=== PATIENT | female | born 1985 | race Caucasian/White ===

== ENCOUNTER 2018-05-03 06:02 | Emergency (ER) | payer SELFPAY ==
[2018-05-03] MEDS ORDERED: KETOROLAC TROMETHAMINE 60 MG/2 ML SDV IM ONE (06:30)
--- NOTE | 2018-05-03 06:58 | ER Document Report ---
ED General - General Chief Complaint: Abdominal Pain Stated Complaint: ABDOMINAL PAIN Time Seen by Provider: 05/03/18 06:24 - HPI Notes: 32-year-old female presents to the emergency department with lower abdominal cramping radiating to her back. The patient stated she has the same pain every month. She states usually tries ibuprofen a hot pad. She states this comes with her. She denies possibly being denies falls or trauma denies vaginal discharge. Denies burning or pain with urination. Discussed the pain as severe cramping in her lower abdomen and it radiates to her back. Again she has this pain every month this month she has tried all her usual methods and still is having pain she is compared to the ER for pain relief and evaluation. - Related Data Allergies/Adverse Reactions: No Known Allergies Allergy (Verified 05/03/18 07:53) Past Medical History - Social History Smoking Status: Never Smoker Family History: None Patient has suicidal ideation: No Patient has homicidal ideation: No Renal/ Medical History: Denies: Hx Peritoneal Dialysis Review of Systems - Review of Systems Constitutional: denies: Chills, Fever Gastrointestinal: Abdominal pain. denies: Diarrhea, Nausea, Vomiting Genitourinary: denies: Dysuria, Hematuria Female Genitourinary: Heavy/abnormal periods, Irregular period, Vaginal bleeding. denies: , Vaginal odor -: Yes All other systems reviewed and negative Physical Exam - Vital signs Vitals: Temp Pulse Resp BP Pulse Ox 98.3 F 70 18 116/54 L 100 05/03/18 06:06 05/03/18 06:06 05/03/18 06:06 05/03/18 06:06 05/03/18 06:06 - Notes Notes: GENERAL_APPEARANCE: well_nourished, alert, cooperative VITALS: reviewed, see vital signs table. HEAD: no_swelling\tenderness on the head. EYES: PERRL, EOMI, conjunctiva_clear. NOSE: no_nasal_discharge. MOUTH: (-)decreased moisture. THROAT: no_tonsilar_inflammation, no_airway_obstruction. no_lymphadenopathy NECK: supple, no_neck_tenderness, (-)thyromegaly. BACK: no_back_tenderness. Negative CVA tenderness CHEST_WALL: no_chest_tenderness. LUNGS: no_wheezing, no_rales, no_rhonchi, (-)accessory muscle use, good air exchange bilateral. HEART: normal_rate, normal_rhythm, normal_S1, normal_S2, (-)S3, (-)S4, no_ murmur, no_rub. ABDOMEN: soft, suprapubic_abd_tenderness, (-)guarding, (-)rebound, no_ organomegaly, no_abd_masses. EXTREMITIES: no_swelling\tenderness in the extremities, no_edema. SKIN: warm, dry, good_color, no_rash. MENTAL_STATUS: speech_clear, oriented_X_3, normal_affect, responds_ appropriately to questions. Course - Re-evaluation Re-evalutation: 05/03/18 06:57 32-year-old female presents to emerge from with lower abdominal cramping similar to prior painful periods. Patient usually has very painful crampy periods every month. She has had this for quite a while unfortunately she has tried her usual medicines and still has discomfort. She came in for evaluation. She is requesting something for pain. 05/03/18 09:52 Patient is not . Urine shows no signs of infection just blood. She did feel better after Toradol injection will be discharged home with a prescription for NSAIDs. - Vital Signs Vital signs: Temp Pulse Resp BP Pulse Ox 98.3 F 70 18 116/54 L 100 05/03/18 06:06 05/03/18 06:06 05/03/18 06:06 05/03/18 06:06 05/03/18 06:06 - Laboratory Laboratory results interpreted by me: 05/03/18 06:56 Urine Blood MODERATE H Urine Urobilinogen 4.0 H Ur Leukocyte Esterase TRACE H Discharge - Discharge Clinical Impression: Menstrual cramps Condition: Good Disposition: HOME, SELF-CARE Instructions: Abdominal Pain ([facility]) Prescriptions: Ketorolac Tromethamine 10 mg PO QID PRN #10 tablet PRN Reason: Pain
[2018-05-03 09:23] LABS: AMORPHOUS SEDIMENT,URINE TRACE /HPF; APPEARANCE,URINE CLOUDY; BILIRUBIN,URINE NEGATIVE (NEGATIVE); COLOR,URINE YELLOW; GLUCOSE, URINE NEGATIVE (NEGATIVE); KETONES,URINE NEGATIVE (NEGATIVE); LEUKOCYTE ESTERASE,URINE TRACE (NEGATIVE); NITRITE,URINE NEGATIVE (NEGATIVE); PROTEIN,URINE NEGATIVE (NEGATIVE); URINE SPECIFIC GRAVITY 1.026
[2018-05-03 10:29] VITALS: BP 110/44
== END 2018-05-03 10:20 | disposition home or self-care (01) ==
LOC: ER 06:02
DX: N94.6 Dysmenorrhea, unspecified (principal)
CPT/HCPCS: 99284; 96372; 82570; 81025; 81001; J1885

== ENCOUNTER → 2018-05-04 | Outpatient (CLI) | payer SELFPAY ==
--- NOTE | 2018-05-04 17:56 | RADIOLOGY REPORT (SQ) ---
EXAM DESCRIPTION: U/S NON-OB PELVIS W/O DOP COMPLETED DATE/TIME: 05/04/2018 5:24 pm REASON FOR STUDY: N94.6 DYSMENORRHEA, UNSPECIFIED N94.6 DYSMENORRHEA, UNSPECIFIED LMP 05/02/2018 COMPARISON: None. TECHNIQUE: Dynamic and static grayscale images acquired of the pelvis via transabdominal approach an d recorded on PACS. Additional selected color Doppler and spectral images recorded. LIMITATIONS: Exam limited because of bowel gas. Incomplete filling of the bladder. FINDINGS: UTERUS: Contour normal. No mass. ENDOMETRIAL STRIPE: Not seen. CERVIX: Not well seen. RIGHT OVARY AND DOPPLER: Not seen. LEFT OVARY AND DOPPLER: Not seen. FREE FLUID: None noted. OTHER: No other significant finding. MEASUREMENTS: UTERUS: 7.2 x 4.2 x 5.2 cm. ENDOMETRIAL STRIPE: Not seen. RIGHT OVARY: Not seen. LEFT OVARY: Not seen. IMPRESSION: The uterus is grossly normal. The study is quite limited. TECHNICAL DOCUMENTATION: JOB ID: [id number] [employer]- All Rights Reserved Rev Reading location - IP/workstation name: [email or web address]
== END ==
LOC: RAD 16:27
DX: N94.6 Dysmenorrhea, unspecified (principal)
CPT/HCPCS: 76856

== ENCOUNTER 2018-08-27 11:02 | Emergency (ER) | payer SELFPAY ==
[2018-08-27 11:12] VITALS: BP 111/53
[2018-08-27] MEDS ORDERED: METHYLPREDNISOLONE INJ 125 MG/2 ML SDV IV ONE (11:38)
[2018-08-27] MEDS ORDERED: FAMOTIDINE INJ/PF 20 MG/2 ML SDV IV ONE (11:38)
[2018-08-27] MEDS ORDERED: DIPHENHYDRAMINE HCL 50 MG/ML VIAL IV ONE (11:38)
--- NOTE | 2018-08-27 11:38 | ER Document Report ---
ED Medical Screen (RME) - General TRAVEL OUTSIDE OF THE [place] IN LAST 30 DAYS: No - General Chief Complaint: Hives Stated Complaint: EYE PAIN Time Seen by Provider: 08/27/18 11:33 Notes: 32-year-old female who presents to the emergency department today with complaints of right eye itching, right eye tearing, and a burning sensation in the right eye which all began prior to arrival today while the patient was "riding down the road". Patient states it feels as if there is "a piece of hair in her eye". Patient states her eye lids itch however the eyeball is not itching. Patient denies any blurry vision, eye discharge, recent insect bites, known allergies, or usage of any new products. I have greeted and performed a rapid initial assessment of this patient. A comprehensive ED assessment and evaluation of the patient, analysis of test results, and completion of the medical decision making process will be conducted by additional ED providers. Review of systems: Constitutional: No symptoms reported EENT: Right eye itching, tearing, burning Denies: blurry vision, eye discharge Cardiovascular: No symptoms reported Respiratory: No symptoms reported Gastrointestinal: No symptoms reported Genitourinary: No symptoms reported Musculoskeletal: No symptoms reported Skin: No symptoms reported Hematologic/Lymphatic: No symptoms reported Neurological/Psychological: No symptoms reported Yes All other systems reviewed and negative PHYSICAL EXAM GENERAL: Alert, interacts well. No acute distress. HEAD: Normocephalic, atraumatic. EYES: Pupils equal, round, and reactive to light. Extraocular movements intact. Right upper and lower eyelids are erythematous. Raised urticarial patches on upper and lower eyelids on the right. Urticarial patches extend from the right eyebrow down to the right maxilla. Right scleral injection. ENT: Oral mucosa moist, tongue midline. NECK: Full range of motion. Supple. Trachea midline. LUNGS: No respiratory distress. EXTREMITIES: Moves all 4 extremities spontaneously. NEUROLOGICAL: Alert and oriented x3. Normal speech. PSYCH: Normal affect, normal mood. SKIN: Warm, dry, normal turgor. Slight erythema over the right clavicle. (ARCHANA BLEVINS) - Related Data Allergies/Adverse Reactions: No Known Allergies Allergy (Verified 05/03/18 07:53) Past Medical History Renal/ Medical History: Denies: Hx Peritoneal Dialysis - Vital signs Vitals: Temp Pulse Resp BP Pulse Ox 98.3 F 79 14 111/53 L 100 08/27/18 11:11 08/27/18 11:11 08/27/18 11:11 08/27/18 11:11 08/27/18 11:11 - Vital Signs Vital signs: Temp Pulse Resp BP Pulse Ox 98.3 F 79 14 111/53 L 100 08/27/18 11:11 08/27/18 11:11 08/27/18 11:11 08/27/18 11:11 08/27/18 11:11 Doctor's Discharge - Discharge Referrals: [facility] [Primary Care Provider] - Follow up as needed Scribe Documentation - Scribe Written by Ever:: Ever Birch, 08/27/2018 1150 acting as scribe for :: Payton
[2018-08-27] MEDS ORDERED: TETRACAINE HCL 0.5% OPH SOLN 4 ML OS ONE (11:58)
--- NOTE | 2018-08-27 12:25 | ER Document Report ---
HPI - HPI Time Seen by Provider: 08/27/18 11:33 Pain Level: 3 Notes: Patient is a 32-year-old female with no significant past medical history who presents to the ED complaining of right orbital rash and itching that occurred just prior to arrival. Patient states that she when she was driving she is not sure if the material from the leave because he had an allergy in that area or if she had a hair in her eye. Patient states that she has not had any vision changes. She does not have any associated sharp pain. Patient states that she does have watery eyes and occasional burning around her eye. No recent illness otherwise. She is eating and drinking without difficulty. She does not wear contact lenses. Denies drug allergies. Patient states that her symptoms have since improved from arrival. Patient states that the rash has significantly tied down since its initial onset. Denies any headache, fever, head injury, neck pain, changes in vision/speech/mentation/hearing, URI, sore throat, chest pain, palpitations, syncope, cough, shortness of breath, wheeze, dyspnea, abdominal pain, nausea/vomiting/diarrhea, urinary retention, dysuria, hematuria. - ROS Systems Reviewed and Negative: Yes All other systems reviewed and negative - DERM Skin Color: Normal Past Medical History - Social History Smoking Status: Never Smoker Family History: None Patient has suicidal ideation: No Patient has homicidal ideation: No Renal/ Medical History: Denies: Hx Peritoneal Dialysis Vertical Provider Document - CONSTITUTIONAL Agree With Documented VS: Yes Notes: PHYSICAL EXAMINATION: GENERAL: Well-appearing, well-nourished and in no acute distress. A&Ox4 HEAD: Atraumatic, normocephalic. EYES: Pupils equal round and reactive to light, extraocular movements intact, sclera anicteric, conjunctiva rt with minimal to no injection w/o discharge or matting. Non-tender to palp of the globe and eye itself. + very mild, faint, hive type rash around the eye, but not obviously noticeable at this time. Visual acuity 20/20 b/l and in each eye (performed by myself at bedside with my own eye chart). No obvious hordeolum noted. Wood's lamp/flourescein: No abrasion, laceration, ulceration, or kurtis sign noted. No obvious foreign body appreciated. ENT: EAC clear b/l. TM's intact b/l without erythema, fluid, or perforation. Nares patent and without discharge. oropharynx clear without exudates. No tonsilar hypertrophy or erythema. Moist mucous membranes. No sinus tenderness. Uvula midline. No palatine shift. No airway compromise. No drooling or hoarseness. No angioedema. NECK: Normal range of motion, supple without lymphadenopathy. No rigidity/ meningismus. LUNGS: Breath sounds clear to auscultation bilaterally and equal. No wheezes rales or rhonchi. HEART: Regular rate and rhythm without murmurs, rubs, gallops. Musculoskeletal: Ext b/l: FROM to passive/active. Strength 5+/5. Extremities: No cyanosis, clubbing, or edema b/l. Peripheral pulses 2+. Capillary refill less than 3 seconds. NEUROLOGICAL: Cranial nerves grossly intact. Normal speech, normal gait. Normal sensory, motor exams PSYCH: Normal mood, normal affect. SKIN: Warm, Dry, normal turgor, no rashes or lesions noted. - INFECTION CONTROL TRAVEL OUTSIDE OF THE [place] IN LAST 30 DAYS: No Course - Re-evaluation Re-evalutation: 08/27/18 12:25 Patient is an afebrile, well-hydrated 32-year-old female who presents to the ED with nonspecific skin rash around her right orbit that does appear to be hives, allergen. Vitals are acceptable without significant tachycardia, tachypnea, or hypoxia. PE is otherwise unremarkable. Patient is nontoxic-appearing and is tolerating p.o. without difficulty. Symptoms were of sudden onset and with watery discharge and irritation, which has since improved. Patient did receive Benadryl, Pepcid, and Solu-Medrol. Patient did have significant improvement in the rash as it was barely noticeable during my examination. She has not had any visual acuity changes. She does not have any sharp eye pain, fever, headache. Low suspicion for any retained corneal or lid foreign body, deep space infection including orbital cellulitis/abscess, acute glaucoma, penetrating globe injury, retinal detachment, meningitis, sepsis, fracture, compartment syndrome, airway compromise, angioedema. Conservative measures otherwise for symptoms with proper handwashing. Recheck with your PCM in 3-5 days. Schedule a f/u with Ophthalmology this week. Return to the ED with any worsening/concerning symptoms otherwise as reviewed in discharge. Patient is in agreement. - Vital Signs Vital signs: Temp Pulse Resp BP Pulse Ox 98.3 F 79 14 111/53 L 100 08/27/18 11:11 08/27/18 11:11 08/27/18 11:11 08/27/18 11:11 08/27/18 11:11 Procedures - Eye Procedure Right Time completed: 12:10 - No complications Eye Irrigated w/ Saline (ccs): 20 Alcaine Drops Administered: Yes - tetracaine Fluorescein applied: Right - see exam Discharge - Discharge Clinical Impression: Hives, Itchy, watery, and red eye Condition: Stable Disposition: HOME, SELF-CARE Instructions: Conjunctivitis, Allergic Additional Instructions: Keep eyes clean Avoid scratching/touching eyes Wash hands regularly Use eye drops as directed Maintain adequate fluid intake tylenol/ibuprofen as needed over the counter cold medication as needed for symptoms F/u: with your PCM in 3-5 days for a recheck Schedule appointment with ophthalmology for evaluation this week Return to the ED with any worsening symptoms and/or development of fever, headache, changes in vision, eye pain, worsening eye redness, redness around the eyes, purulent discharge, sore throat, facial swelling, neck pain/stiffness , chest pain, palpitations, syncope, shortness of breath, trouble breathing, abdominal pain, n/v/d, blood in stool/urine, dysuria, or other worsening symptoms that are concerning to you. Referrals: [facility] [NO LOCAL MD] - Follow up in 3-5 days JAISON QUESADA MD [ACTIVE STAFF] - Follow up in 3-5 days
== END 2018-08-27 12:40 | disposition home or self-care (01) ==
LOC: ER 11:02
DX: L50.9 Urticaria, unspecified (principal); R21 Rash and other nonspecific skin eruption
CPT/HCPCS: 99282; 96374; 96375; J1200; J2930; S0028

== ENCOUNTER → 2018-08-31 | Outpatient (CLI) | payer SELFPAY | LOC: OD 16:36 | PROVIDERS: ATTEND Student in an Organized Health Care Education/Training Program | DX: Z11.3 Encounter for screening for infections with a predominantly sexual mode of transmission (principal); Z11.4 Encounter for screening for human immunodeficiency virus [HIV] | CPT/HCPCS: 36415; 86592; 86701 ==

== ENCOUNTER 2018-10-20 00:42 | Emergency (ER) | payer SELFPAY ==
[2018-10-20 00:51] VITALS: BP 120/67
== END 2018-10-20 01:45 | disposition left against medical advice (07) ==
LOC: ER 00:42
DX: Z53.21 Procedure and treatment not carried out due to patient leaving prior to being seen by health care provider (principal)

== ENCOUNTER 2018-10-26 20:37 | Emergency (ER) | payer SELFPAY ==
[2018-10-26 20:43] VITALS: BP 129/64
== END 2018-10-26 22:30 | disposition left against medical advice (07) ==
LOC: ER 20:37
DX: Z53.21 Procedure and treatment not carried out due to patient leaving prior to being seen by health care provider (principal)

== ENCOUNTER 2018-10-30 13:57 | Emergency (ER) | payer SELFPAY ==
[2018-10-30] MEDS ORDERED: PREDNISONE 20 MG TABLET PO ONE (16:22)
[2018-10-30] MEDS ORDERED: ALBUTEROL SULFATE HFA (90 MCG/PUFF) 8 GM MDI (1 MDI/ER DISP) IH ONE (16:22)
[2018-10-30] MEDS ORDERED: IPRATROPIUM/ALBUTEROL 0.5-2.5 MG/3 ML AMPUL NEB ONE (16:24)
--- NOTE | 2018-10-30 16:28 | ER Document Report ---
ED Respiratory Problem - General Chief Complaint: Asthma Exacerbation Stated Complaint: COLD SYMPTOMS Time Seen by Provider: 10/30/18 16:21 Primary Care Provider: EVY CROWDER MD [ACTIVE STAFF] - Follow up as needed Mode of Arrival: Ambulatory Information source: Patient Notes: 33-year-old female presents to ED for history of asthma with cough cold congestion runny nose shortness of breath. She states that she has not had her inhaler in months and she cannot get over this wheezing and shortness of breath. She states she has a refill at the pharmacy but she does not have the money to buy the refill. Patient is alert and oriented respirations regular and unlabored speaking in full sentences and walks with a even steady gait. She does have a mild wheeze. TRAVEL OUTSIDE OF THE [place] IN LAST 30 DAYS: No - HPI Patient complains to provider of: Asthma, Cough, Short of breath Onset: Last week Duration: Continuous Initiating Event: URI Quality of pain: Achy, Other - Tight chest Severity: Moderate Pain Level: 3 Context: Hx asthma Short of Breath: Mild Chest pain/discomfort: Tightness Cough: Nonproductive Sputum amount: None Associated symptoms: Congestion, Cough, PND, Runny nose, Sinus pain/pressure, Short of breath, Wheezing. denies: Fever Similar symptoms previously: Yes Recently seen / treated by doctor: No - Related Data Allergies/Adverse Reactions: No Known Allergies Allergy (Verified 10/30/18 13:59) Past Medical History - General Information source: Patient - Social History Smoking Status: Former Smoker Chew tobacco use (# tins/day): No Frequency of alcohol use: Rare Drug Abuse: None Lives with: Family Family History: None Patient has suicidal ideation: No Patient has homicidal ideation: No Pulmonary Medical History: Reports: Hx Asthma Neurological Medical History: Reports: None Endocrine Medical History: Reports: None Renal/ Medical History: Reports: None Malignancy Medical History: Reports: None GI Medical History: Reports: None Musculoskeletal Medical History: Reports None Skin Medical History: Reports None Psychiatric Medical History: Reports: None Traumatic Medical History: Reports: None Infectious Medical History: Reports: None Surgical Hx: Negative Past Surgical History: Reports: None - Immunizations Immunizations up to date: Yes Review of Systems - Review of Systems Constitutional: Chills, Recent illness EENT: Nose congestion, Nose discharge, Sinus pressure, Sinus discharge Cardiovascular: No symptoms reported Respiratory: Cough, Short of breath, Wheezing Gastrointestinal: No symptoms reported Genitourinary: No symptoms reported Female Genitourinary: No symptoms reported Musculoskeletal: No symptoms reported Skin: No symptoms reported Hematologic/Lymphatic: No symptoms reported Neurological/Psychological: No symptoms reported -: Yes All other systems reviewed and negative Physical Exam - Vital signs Vitals: Temp Pulse Resp BP Pulse Ox 98.0 F 75 18 112/62 100 10/30/18 14:19 10/30/18 14:19 10/30/18 14:19 10/30/18 14:19 10/30/18 14:19 Interpretation: Normal - General General appearance: Appears well, Alert - HEENT Head: Normocephalic, Atraumatic Eyes: Normal Pupils: PERRL Ears: Normal External canal: Normal Tympanic membrane: Normal Sinus: Normal Nasal: Purulent discharge, Swelling Mouth/Lips: Normal Mucous membranes: Normal Pharynx: Post nasal drainage. No: Erythema, Exudate, Retropharyngeal abscess, Tonsillar hypertrophy Neck: Normal - Respiratory Respiratory status: No respiratory distress Chest status: Nontender Breath sounds: Nonproductive cough, Wheezing Chest palpation: Normal - Cardiovascular Rhythm: Regular Heart sounds: Normal auscultation Murmur: No - Abdominal Inspection: Normal Distension: No distension Bowel sounds: Normal Tenderness: Nontender Organomegaly: No organomegaly - Back Back: Normal, Nontender - Extremities General upper extremity: Normal inspection, Nontender, Normal color, Normal ROM, Normal temperature General lower extremity: Normal inspection, Nontender, Normal color, Normal ROM, Normal temperature, Normal weight bearing. No: Tigist's sign - Neurological Neuro grossly intact: Yes Cognition: Normal Orientation: AAOx4 Broughton Coma Scale Eye Opening: Spontaneous Edith Coma Scale Verbal: Oriented Edith Coma Scale Motor: Obeys Commands Edith Coma Scale Total: 15 Speech: Normal Motor strength normal: LUE, RUE, LLE, RLE Sensory: Normal - Psychological Associated symptoms: Normal affect, Normal mood - Skin Skin Temperature: Warm Skin Moisture: Dry Skin Color: Normal Course - Re-evaluation Re-evalutation: 10/31/18 02:20 Patient treated with steroids bronchodilators for her wheezing cough congestion and discharged home with prescriptions for steroids bronchodilators and antibiotics for her pneumonia. Patient was instructed to get her antibiotic for possible preferably tonight and get started on her antibiotics as she would not get better without them. Patient verbalized understanding and agreement with treatment plan. - Vital Signs Vital signs: Temp Pulse Resp BP Pulse Ox 97.8 F 90 18 121/66 98 10/30/18 18:17 10/30/18 18:17 10/30/18 18:17 10/30/18 18:17 10/30/18 18:17 - Diagnostic Test Radiology reviewed: Image reviewed, Reports reviewed Discharge - Discharge Clinical Impression: Right middle lobe pneumonia Qualifiers: Pneumonia type: due to unspecified organism Qualified Code(s): J18.1 - Lobar pneumonia, unspecified organism Condition: Stable Disposition: HOME, SELF-CARE Additional Instructions: PNEUMONIA: Your examination indicates that you have pneumonia. This is an infection of the lung tissue, usually caused by bacteria or a virus. Symptoms include cough, fever, shaking chills, chest pain, shortness of breath, and coughing up bloody sputum. Treatment for bacterial pneumonia includes rest, antibiotics for 10 to 14 days, increasing your clear liquid intake, a cool mist humidifier at your bedside, and fever medication. Often, a repeat chest X-ray is performed in a few weeks--even if you feel better--to ascertain whether the infection has completely resolved and no underlying lung problem is present. You should call the physician if you develop persistent vomiting, high fever that does not respond to fever medication, increasing shortness of breath, confusion, or lethargy. Also, failure to improve within two to three days is an indication for re-examination. ASTHMA: You have been diagnosed as having asthma. This is a condition where there is episodic tightness in the bronchial tubes. Allergies, infections, and polluted or cold air may be contributing factors. Emergency treatment of a severe asthma attack may include adrenaline shots, or bronchodilator aerosol. You may feel lightheaded, have a decreased exercise tolerance and a rapid pulse for an hour or two. Rest and get plenty of fluids. Home treatment of asthma requires bronchodilator drugs. These can be administered by injection, inhalation, or by mouth. Antibiotics and corticosteroids may be required for some patients. You should avoid chemical fumes, dusts, pollens, and exercising in very cold or dry air. If you smoke, stop!! If you develop a fever, increased wheezing, chest pain, or severe shortness of breath, you should contact the doctor immediately. STEROID MEDICATION: You have been given an injection of or oral medicine of the cortisone/steroid class. This medication is used to control inflammation or allergy. Zaheer t is usually only given for a short period of time, until the acute process subsides. There are usually no side effects from short-term use of cortisone-like medications. Some persons feel an increased sense of well-being and are not sleepy at bedtime. Long-term use of cortisone medications is best avoided, unless required for a severe condition. If your condition does not remit, or relapses after the course of corticosteroid medication, you should consult your physician. INHALED BRONCHODILATORS: You have received treatment(s) of and/or prescription for an inhaled bronchodilator -- a medication which stimulates the airways in the lung to dilate. This improves the flow of air in asthma, bronchitis, and emphysema. These medicines have some similarity to adrenaline, and can cause similar side effects: shakiness, racing heart, and a sense of nervousness. These side effects decrease with time. Contact your doctor if these side effects are severe. Do not over-use the medicine. Too-frequent use of the inhaler may make it ineffective. Call your doctor if the inhaler is not controlling your symptoms at the prescribed doses. SMOKING: If you smoke, you should stop smoking. The tar and chemicals in cigarette smoke are harmful. Smoking has been shown to cause: emphysema chronic bronchitis lung cancer mouth and throat cancer stomach and pancreas cancer premature aging defects In addition, smoking increases ear and lung infections in children of smokers. AZITHROMYCIN: Azithromycin (Zithromax) is a broad spectrum antibiotic in the same class as erythromycin. It can treat a variety of bacterial infections, but is most frequently used for respiratory infections. Azithromycin is extremely long-lasting. It accumulates in body tissues and continues to kill bacteria for many days. In order to improve absorption, Azithromycin should be taken at least one hour before or two hours after a meal. It does not have the same strong tendency to upset the stomach as erythromycin and is usually very well tolerated. Patients who have had a rash or other true allergic reactions to erythr omycin should not take this medication. Call if you develop gastrointestinal distress, severe diarrhea, rash, hives, itching, or shortness of breath. USE OF ACETAMINOPHEN (Tylenol): Acetaminophen may be taken for pain relief or fever control. It's much safer than aspirin, offering a wider range of "safe" dosages. It is safe during . Some brand names are Tylenol, Panadol, Datril, Anacin 3, Tempra, and Liquiprin. Acetaminophen can be repeated every four hours. The following are maximum recommended dosages: WEIGHT Dose Drops Elixir C robertwable(80mg) (LBS.) drprs=droppers tsp=teaspoon 6 40 mg 0.4 ml (1/2) 6-11 80 mg 0.8 ml (full) tsp 1 tab 12-16 120 mg 1 1/2 drprs 3/4 tsp 1 1/2 tabs 17-23 160 mg 2 drprs 1 tsp 2 tabs 24-30 240 mg 3 drprs 1 1/2 tsp 3 tabs 30-35 320 mg 2 tsp 4 tabs 36-41 360 mg 2 1/4 tsp 4 1/2 tabs 42-47 400 mg 2 1/2 tsp 5 tabs 48-53 480 mg 3 tsp 6 tabs 54-59 520 mg 3 1/4 tsp 6 1/2 tabs 60-64 560 mg 3 1/2 tsp 7 tabs 65-70 600 mg 3 3/4 tsp 7 1/2 tabs 71-76 640 mg 4 tsp 8 tabs 77-82 720 mg 4 1/2 tsp 9 tabs 83-88 800 mg 5 tsp 10 tabs >89 pounds or adults 650 mg to 900 mg Acetaminophen can be repeated every four hours. Maximum dose not to exceed 4000 mg a day. These maximum recommended dosages are slightly higher than the dosages written on the product container, but these dosages are very safe and below the toxic dosage for acetaminophen. AZITHROMYCIN: Azithromycin (Zithromax) is a broad spectrum antibiotic in the same class as erythromycin. It can treat a variety of bacterial infections, but is most frequently used for respiratory infections. Azithromycin is extremely long-lasting. It accumulates in body tissues and continues to kill bacteria for many days. In order to improve absorption, Azithromycin should be taken at least one hour before or two hours after a meal. It does not have the same strong tendency to upset the stomach as erythromycin and is usually very well tolerated. Patients who have had a rash or other true allergic reactions to erythromycin should not take this medication. Call if you develop gastrointestinal distress, severe diarrhea, rash, hives, itching, or shortness of breath. FOLLOW-UP CARE: If you have been referred to a physician for follow-up care, call the physicians office for an appointment as you were instructed or within the next two days. If you experience worsening or a significant change in your symptoms, notify the physician immediately or return to the Emergency Department at any time for re-evaluation. Prescriptions: Azithromycin [Zithromax 250 mg Tablet] 250 mg PO ASDIR PRN #6 tablet PRN Reason: Prednisone [Deltasone 20 mg Tablet] 3 tab PO DAILY 5 Days tablet Referrals: EVY CROWDER MD [ACTIVE STAFF] - Follow up as needed
[2018-10-30] MEDS ORDERED: ALBUTEROL SULFATE 0.083% NEB 2.5 MG/3 ML AMPUL NEB SCH (16:30)
--- NOTE | 2018-10-30 17:20 | RADIOLOGY REPORT (SQ) ---
EXAM DESCRIPTION: CHEST 2 VIEWS COMPLETED DATE/TIME: 10/30/2018 5:09 pm REASON FOR STUDY: cough congestion wheezing COMPARISON: None. EXAM PARAMETERS: NUMBER OF VIEWS: two views TECHNIQUE: Digital Frontal and Lateral radiographic views of the chest acquired. RADIATION DOSE: NA LIMITATIONS: none FINDINGS: LUNGS AND PLEURA: Indistinct density in the mid right lung, best demonstrated on the front al view. Left lung clear. No pleural effusion. No pneumothorax. MEDIASTINUM AND HILAR STRUCTURES: No masses or contour abnormalities. HEART AND VASCULAR STRUCTURES: Heart normal size. No evidence for failure. BONES: No acute findings. HARDWARE: None in the chest. OTHER: No other significant finding. IMPRESSION: INDISTINCT DENSITY IN THE MID RIGHT LUNG, POSSIBLY A FOCAL AREA OF EARLY PNEUMONIA. REC OMMEND FOLLOW-UP CHEST X-RAY AFTER TREATMENT. TECHNICAL DOCUMENTATION: JOB ID: [id number] [employer]- All Rights Reserved Reading location - IP/workstation name: [email or web address]
[2018-10-30 18:21] VITALS: BP 121/66
== END 2018-10-30 18:21 | disposition home or self-care (01) ==
LOC: ER 13:57
DX: J18.1 Lobar pneumonia, unspecified organism (principal)
CPT/HCPCS: 94640; 99283; 71046; J7512; J3490; J7620

== ENCOUNTER 2018-12-18 12:05 | Emergency (ER) | payer SELFPAY ==
[2018-12-18] MEDS ORDERED: HYDROCODONE/ACETAMINOPHEN 5-325 MG TABLET PO ONE (13:28)
--- NOTE | 2018-12-18 13:30 | ER Document Report ---
ED GI/ - General Chief Complaint: Abdominal Pain Stated Complaint: ABDOMINAL PAIN Time Seen by Provider: 12/18/18 13:24 Mode of Arrival: Ambulatory Information source: Patient TRAVEL OUTSIDE OF THE [place] IN LAST 30 DAYS: No - HPI Patient complains to provider of: Pelvic pain, Vaginal bleeding Onset: Yesterday Timing/Duration: Gradual Quality of pain: Achy, Cramping Severity at maximum: Moderate Severity in ED: Moderate Pain Level: 3 Location: Suprapubic Vaginal bleeding (Compared to normal period): Heavier Associated symptoms: None Exacerbated by: Denies Relieved by: Denies Similar symptoms previously: No Recently seen / treated by doctor: No Notes: 12/18/18 13:29 Patient is a 33-year-old female presenting to the emergency room complaining of pelvic cramping bleeding that started yesterday, states she normally gets her menstrual cycle at the end of the month and it is quite early at this point in time, however she does admit to taking plan B approximately 1 week ago after having intercourse where the condom broke, denies nausea or vomiting, no fever or chills, no vaginal discharge prior to bleeding starting today, patient reports she took Aleve yesterday evening which provided her some relief - Related Data Allergies/Adverse Reactions: No Known Allergies Allergy (Verified 10/30/18 13:59) Past Medical History - General Information source: Patient - Social History Smoking Status: Unknown if Ever Smoked Family History: None Pulmonary Medical History: Reports: Hx Asthma Renal/ Medical History: Denies: Hx Peritoneal Dialysis - Immunizations Immunizations up to date: Yes Review of Systems - Review of Systems Constitutional: No symptoms reported EENT: No symptoms reported Cardiovascular: No symptoms reported Respiratory: No symptoms reported Gastrointestinal: No symptoms reported Genitourinary: No symptoms reported Female Genitourinary: See HPI Musculoskeletal: No symptoms reported Skin: No symptoms reported Hematologic/Lymphatic: No symptoms reported Neurological/Psychological: No symptoms reported -: Yes All other systems reviewed and negative Physical Exam - Vital signs Vitals: Temp Pulse Resp BP Pulse Ox 98.2 F 68 16 112/53 L 100 12/18/18 12:28 12/18/18 12:28 12/18/18 12:28 12/18/18 12:28 12/18/18 12:28 Interpretation: Normal - General General appearance: Appears well, Alert - HEENT Head: Normocephalic, Atraumatic Eyes: Normal Pupils: PERRL - Respiratory Respiratory status: No respiratory distress Chest status: Nontender Breath sounds: Normal Chest palpation: Normal - Cardiovascular Rhythm: Regular Heart sounds: Normal auscultation Murmur: No - Abdominal Inspection: Normal Distension: No distension Bowel sounds: Normal Tenderness: Tender - Suprapubic Organomegaly: No organomegaly - Back Back: Normal, Nontender - Extremities General upper extremity: Normal inspection, Nontender, Normal color, Normal ROM, Normal temperature General lower extremity: Normal inspection, Nontender, Normal color, Normal ROM, Normal temperature, Normal weight bearing. No: Tigist's sign - Neurological Neuro grossly intact: Yes Cognition: Normal Orientation: AAOx4 Edith Coma Scale Eye Opening: Spontaneous Edith Coma Scale Verbal: Oriented Edith Coma Scale Motor: Obeys Commands Edith Coma Scale Total: 15 Speech: Normal Motor strength normal: LUE, RUE, LLE, RLE Sensory: Normal - Psychological Associated symptoms: Normal affect, Normal mood - Skin Skin Temperature: Warm Skin Moisture: Dry Skin Color: Normal Course - Re-evaluation Re-evalutation: 12/18/18 14:53 Urinalysis findings discussed with patient at bedside which are unremarkable except for hematuria, however she is having vaginal bleeding, therefore patient will be discharged with instructions for follow-up, advised to return if symptoms worsen, patient acknowledges understanding and agreement with this plan - Vital Signs Vital signs: Temp Pulse Resp BP Pulse Ox 98.2 F 68 16 112/53 L 100 12/18/18 12:28 12/18/18 12:28 12/18/18 12:28 12/18/18 12:28 12/18/18 12:28 - Laboratory Laboratory results interpreted by me: 12/18/18 13:42 Urine Protein 100 H Urine Blood LARGE H Urine Urobilinogen 4.0 H Ur Leukocyte Esterase TRACE H Urine Ascorbic Acid 40 H Discharge - Discharge Clinical Impression: Pelvic pain Condition: Stable Disposition: HOME, SELF-CARE Instructions: Pelvic Pain ([facility]) Additional Instructions: Follow up with your primary care provider in one to 2 days. Return to the emergency room immediately if symptoms worsen or any additional concerns. Prescriptions: Hydrocodone/Acetaminophen [Arbon 5-325 mg Tablet] 1 tab PO Q6 #14 tablet
[2018-12-18 14:09] LABS: AMORPHOUS SEDIMENT,URINE TRACE /HPF; APPEARANCE,URINE CLOUDY; BILIRUBIN,URINE NEGATIVE (NEGATIVE); COLOR,URINE YELLOW; GLUCOSE, URINE NEGATIVE (NEGATIVE); KETONES,URINE NEGATIVE (NEGATIVE); LEUKOCYTE ESTERASE,URINE TRACE (NEGATIVE); NITRITE,URINE NEGATIVE (NEGATIVE); PROTEIN,URINE 100 mg/dL (NEGATIVE)
[2018-12-18 14:56] VITALS: BP 107/65
== END 2018-12-18 14:57 | disposition home or self-care (01) ==
LOC: ER 12:05
DX: R10.2 Pelvic and perineal pain (principal); N93.9 Abnormal uterine and vaginal bleeding, unspecified; J45.909 Unspecified asthma, uncomplicated
CPT/HCPCS: 81001; 81025; 99284

== ENCOUNTER 2019-03-03 17:47 | Emergency (ER) | payer SELFPAY ==
[2019-03-03] MEDS ORDERED: IPRATROPIUM/ALBUTEROL 0.5-2.5 MG/3 ML AMPUL NEB ONE ×2 (18:33→19:21)
--- NOTE | 2019-03-03 18:33 | ER Document Report ---
ED Medical Screen (RME) - General Chief Complaint: Asthma Exacerbation Stated Complaint: ASTHMA Time Seen by Provider: 03/03/19 18:29 Notes: Patient is a 33-year-old female presents emergency department with a chief complaint of guilty breathing. She states that she does have asthma and she is started to have some shortness of breath about 2 to 3 hours ago. She does not have a rescue inhaler. She does have a history of asthma. Exam: Inspiratory and expiratory wheezes noted throughout all lung foy. I have greeted and performed a rapid initial assessment of this patient. A comprehensive ED assessment and evaluation of the patient, analysis of test results and completion of medical decision making process will be conducted by an additional ED providers. TRAVEL OUTSIDE OF THE [place] IN LAST 30 DAYS: No - Related Data Allergies/Adverse Reactions: No Known Allergies Allergy (Verified 10/30/18 13:59) Past Medical History Pulmonary Medical History: Reports: Hx Asthma Renal/ Medical History: Denies: Hx Peritoneal Dialysis - Immunizations Immunizations up to date: Yes Physical Exam - Vital signs Vitals: Temp Pulse Resp BP Pulse Ox 98.2 F 78 11 L 112/66 100 03/03/19 18:07 03/03/19 18:07 03/03/19 18:07 03/03/19 18:07 03/03/19 18:07 Course - Vital Signs Vital signs: Temp Pulse Resp BP Pulse Ox 98.2 F 78 11 L 112/66 100 03/03/19 18:07 03/03/19 18:07 03/03/19 18:07 03/03/19 18:07 03/03/19 18:07
--- NOTE | 2019-03-03 19:08 | RADIOLOGY REPORT (SQ) ---
EXAM DESCRIPTION: CHEST SINGLE VIEW COMPLETED DATE/TIME: 03/03/2019 6:57 pm REASON FOR STUDY: shortness of breath COMPARISON: 10/30/2018 EXAM PARAMETERS: NUMBER OF VIEWS: One view. TECHNIQUE: Single frontal radiographic view of the chest acquired. RADIATION DOSE: NA LIMITATIONS: None. FINDINGS: LUNGS AND PLEURA: No opacities, masses or pneumothorax. No pleural effusion. MEDIASTINUM AND HILAR STRUCTURES: No masses. Contour normal. HEART AND VASCULAR STRUCTURES: Heart normal in size. Normal vasculature. BONES: No acute findings. HARDWARE: None in the chest. OTHER: No other significant finding. IMPRESSION: NO ACUTE RADIOGRAPHIC FINDING IN THE CHEST. TECHNICAL DOCUMENTATION: JOB ID: [id number] [employer]- All Rights Reserved Reading location - IP/workstation name: [email or web address]
--- NOTE | 2019-03-03 19:22 | ER Document Report ---
ED General - General Chief Complaint: Asthma Exacerbation Stated Complaint: ASTHMA Time Seen by Provider: 03/03/19 18:29 Notes: Patient is a 33-year-old female presents emergency department with a chief complaint of difficulty breathing. She states that she does have asthma and she is started to have some shortness of breath about 2 to 3 hours ago. She does not have a rescue inhaler or nebulizer at home. She does have a history of asthma. Denies any chest pain, abdominal pain, or any other symptoms. TRAVEL OUTSIDE OF THE [place] IN LAST 30 DAYS: No - Related Data Allergies/Adverse Reactions: No Known Allergies Allergy (Verified 10/30/18 13:59) Past Medical History - Social History Smoking Status: Former Smoker Frequency of alcohol use: None Drug Abuse: None Family History: None Patient has suicidal ideation: No Patient has homicidal ideation: No Pulmonary Medical History: Reports: Hx Asthma Renal/ Medical History: Denies: Hx Peritoneal Dialysis - Immunizations Immunizations up to date: Yes Review of Systems - Review of Systems Notes: REVIEW OF SYSTEMS: CONSTITUTIONAL : Denies recent illness. Denies recent unintentional weight loss. Denies fever, chills, or sweats. EENT: Denies eye, ear, throat, or mouth pain, discharge, or symptoms. Denies nasal or sinus congestion. CARDIOVASCULAR: Denies chest pain. RESPIRATORY: See HPI GASTROINTESTINAL: Denies nausea, vomiting, and diarrhea. Denies abdominal pain. Denies constipation. GENITOURINARY: Denies difficulty urinating, burning, blood in urine, urgency or frequency. MUSCULOSKELETAL: Denies neck and back pain. Denies joint pain or swelling. SKIN: Denies rash, itchiness, or lesions HEMATOLOGIC : Denies easy bruising or bleeding. LYMPHATIC: Denies swollen, painful, enlarged glands. NEUROLOGICAL: Denies no numbness or tingling denies weakness. Denies headache. Denies altered mental status. Denies alteration in speech. PSYCHIATRIC: Denies stress, anxiety, alteration in sleep patterns, or depression. All other systems reviewed and negative. Physical Exam - Vital signs Vitals: Temp Pulse Resp BP Pulse Ox 98.2 F 78 11 L 112/66 100 03/03/19 18:07 03/03/19 18:07 03/03/19 18:07 03/03/19 18:07 03/03/19 18:07 - Notes Notes: PHYSICAL EXAMINATION: GENERAL: Appears well, healthy, well-nourished, no acute distress. HEAD: Normocephalic, atraumatic. EYES: PERRL, conjunctiva normal, all extraocular movements intact, sclera nonicteric ENT: Moist mucous membranes. NECK: Supple, no noticeable swelling, redness, rash. Normal range of motion. LUNGS: Equal breath sounds bilaterally and expiratory wheezes noted to auscultation. No rales or rhonchi. CARDIOVASCULAR: S1-S2, regular rate, regular rhythm. Radial pulses 2+, normal. ABDOMEN: Normoactive bowel sounds. Soft, nontender, no guarding, no rebound tenderness, and no masses palpated. EXTREMITIES: Normal strength and range of motion, no pitting or edema. No cyanosis. NEUROLOGICAL: Moves all extremities upon command. Strength 5/5 in all extremities. PSYCH: Normal mood, normal affect. SKIN: Warm, dry. No rash, lesions, ulcerations noted. Normal skin turgor. Course - Re-evaluation Re-evalutation: 03/03/19 19:23 Patient's chest x-ray is normal. I have reevaluated the patient and she still has end inspiratory wheezes noted to the right upper lobe and left lower lobe. I will give her another DuoNeb treatment. Hopefully she will have clear lung sounds after the second treatment. If she does, she will be discharged home with an albuterol inhaler with a spacer. 03/03/19 20:05 I reassessed the patient and her breath sounds are now clear. She will be sent home with an albuterol inhaler and a spacer. She will follow-up with the [facility]. I do not suspect any life-threatening etiology at this time. Patient states that she feels much better after receiving her breathing treatments. Verbal discharge instructions were given to the patient. They verbalized understanding. They are stable for discharge. - Vital Signs Vital signs: Temp Pulse Resp BP Pulse Ox 98.2 F 78 11 L 112/66 100 03/03/19 18:07 03/03/19 18:07 03/03/19 18:07 03/03/19 18:07 03/03/19 18:07 Discharge - Discharge Clinical Impression: Asthma exacerbation Qualifiers: Asthma severity: moderate Asthma persistence: unspecified Qualified Code(s): J45.901 - Unspecified asthma with (acute) exacerbation Condition: Stable Disposition: HOME, SELF-CARE Instructions: Asthma ([facility]), Inhaled Bronchodilators ([facility]) Additional Instructions: You were seen today in the emergency department for an acute asthma exacerbation. You are being given a albuterol inhaler and a spacer. Please take 1 to 2 puffs every 4-6 hours as needed for wheezing. Please follow-up with the [facility] in regards to this visit. If you develop shortness of breath, difficulty breathing, or have any symptoms that are worrisome to you, please return to the emergency department. Referrals: [facility] [Provider Group] - 03/06/19
[2019-03-03] MEDS ORDERED: ALBUTEROL SULFATE HFA (90 MCG/PUFF) 8 GM MDI (1 MDI/ER DISP) IH PRN (20:06)
[2019-03-03 20:28] VITALS: BP 118/74
== END 2019-03-03 20:20 | disposition home or self-care (01) ==
LOC: ER 17:47
DX: J45.901 Unspecified asthma with (acute) exacerbation (principal)
CPT/HCPCS: 94640 ×2; 99285; 71045; J3490; J7620

== ENCOUNTER 2019-07-26 14:19 | Emergency (ER) | payer SELFPAY ==
[2019-07-26] MEDS ORDERED: KETOROLAC TROMETHAMINE 60 MG/2 ML SDV IM ONE (14:42)
--- NOTE | 2019-07-26 14:42 | ER Document Report ---
ED Medical Screen (RME) - General Chief Complaint: Abdominal Cramping Stated Complaint: ABDOMINAL CRAMPING Time Seen by Provider: 07/26/19 14:40 Primary Care Provider: BROOKE FRAGOSO [Primary Care Provider] - Follow up as needed Mode of Arrival: Ambulatory Information source: Patient Notes: 33-year-old female presents to ED for complaint of severe pelvic cramping during her cycle. She is on her cycle at this time. She states it is very painful every month. She states she is taken some Midol and some ibuprofen and is having severe cramping. She is alert oriented respirations regular and unlabored speaking in full sentences. She states her cycle started today. Patient states she would like a shot of Toradol in the pit area. I have greeted and performed a rapid initial assessment of this patient. A comprehensive ED assessment and evaluation of the patient, analysis of test results and completion of medical decision making process will be conducted by an additional ED providers. TRAVEL OUTSIDE OF THE [place] IN LAST 30 DAYS: No - Related Data Allergies/Adverse Reactions: No Known Allergies Allergy (Verified 10/30/18 13:59) Past Medical History Pulmonary Medical History: Reports: Hx Asthma Renal/ Medical History: Denies: Hx Peritoneal Dialysis - Immunizations Immunizations up to date: Yes Doctor's Discharge - Discharge Referrals: BROOKE FRAGOSO [Primary Care Provider] - Follow up as needed
[2019-07-26 15:29] LABS: ABSOLUTE EOSINOPHILS # (AUTO) 0.1 10^3/uL (0.0-0.6); ABSOLUTE LYMPHOCYTES (AUTO) 1.3 10^3/uL (0.5-4.7); ABSOLUTE MONOCYTES (AUTO) 0.5 10^3/uL (0.1-1.4); ABSOLUTE NEUT (AUTO) 5.4 10^3/uL (1.7-8.2); BASOPHILS % (AUTO) 0.4 % (0-2); EOSINOPHILS % (AUTO) 1.5 % (0-6); HEMATOCRIT 41.7 % (36.0-47.0); HEMOGLOBIN 14.1 g/dL (12.0-15.5); LYMPHOCYTES % (AUTO) 17.8 % (13-45); MEAN CORPUSCULAR HEMOGLOBIN 32.2 pg (27.0-33.4); MEAN CORPUSCULAR HGB CONC 33.7 g/dL (32.0-36.0); MEAN CORPUSCULAR VOLUME 96 fl (80-97); MONOCYTES % (AUTO) 6.2 % (3-13); PLATELET COUNT 286 10^3/uL (150-450); RED BLOOD COUNT 4.37 10^6/uL (3.72-5.28); SEGMENTED NEUTROPHILS % (AUTO) 74.1 % (42-78); TOTAL CELLS COUNTED % (AUTO) 100 %; WHITE BLOOD COUNT 7.3 10^3/uL (4.0-10.5)
[2019-07-26 16:07] LABS: ALBUMIN 3.9 g/dL (3.5-5.0); ALKALINE PHOSPHATASE 57 U/L (38-126); ANION GAP 8 (5-19); ASPARTATE AMINO TRANSFERASE 24 U/L (14-36); BILIRUBIN,DIRECT 0.1 mg/dL (0.0-0.4); BILIRUBIN,TOTAL 0.6 mg/dL (0.2-1.3); BLOOD UREA NITROGEN 11 mg/dL (7-20); CALCIUM 8.8 mg/dL (8.4-10.2); CARBON DIOXIDE 26 mmol/L (22-30); CHLORIDE 104 mmol/L (98-107); TOTAL PROTEIN 7.1 g/dL (6.3-8.2)
[2019-07-26 16:09] LABS: GLUCOSE 66 mg/dL (75-110)
[2019-07-26 16:17] LABS: APPEARANCE,URINE SLIGHTLY-CLOUDY; BILIRUBIN,URINE NEGATIVE (NEGATIVE); COLOR,URINE YELLOW; GLUCOSE, URINE NEGATIVE (NEGATIVE); KETONES,URINE NEGATIVE (NEGATIVE); PROTEIN,URINE NEGATIVE (NEGATIVE); URINE SPECIFIC GRAVITY 1.025; UROBILINOGEN,URINE NEGATIVE mg/dL (<2.0)
--- NOTE | 2019-07-26 18:20 | ER Document Report ---
ED GI/ - General Chief Complaint: Abdominal Pain Stated Complaint: ABDOMINAL CRAMPING Time Seen by Provider: 07/26/19 14:40 Primary Care Provider: [facility] [NO LOCAL MD] - Follow up as needed Mode of Arrival: Ambulatory Notes: 33-year-old female presents to the emergency department with lower abdominal cramping radiating to her back. The patient stated she has the same pain every month. She is currently on her period and states it is worse with her. But will get intermittent cramping "once in a blue batista" throughout other times of the month. She states usually tries ibuprofen a hot pad. She states this comes with her. She states that "I do not flow" and she will have to bend over completely forward for her menstruation the past. She denies possibly being , denies falls or trauma, denies abnormal vaginal discharge. Denies urinary symptoms. Discussed the pain as severe cramping in her lower abdomen and it radiates to her back. Again she has this pain every month this month she has tried all her usual methods and still is having pain she is compared to the ER for pain relief and evaluation. TRAVEL OUTSIDE OF THE [place] IN LAST 30 DAYS: No - Related Data Allergies/Adverse Reactions: No Known Allergies Allergy (Verified 10/30/18 13:59) Past Medical History - General Information source: Patient - Social History Smoking Status: Never Smoker Chew tobacco use (# tins/day): No Frequency of alcohol use: None Drug Abuse: None Family History: None Patient has suicidal ideation: No Patient has homicidal ideation: No Pulmonary Medical History: Reports: Hx Asthma Renal/ Medical History: Denies: Hx Peritoneal Dialysis - Immunizations Immunizations up to date: Yes Review of Systems - Review of Systems Constitutional: See HPI EENT: No symptoms reported Cardiovascular: No symptoms reported Respiratory: No symptoms reported Gastrointestinal: See HPI Genitourinary: See HPI Female Genitourinary: See HPI Musculoskeletal: No symptoms reported Skin: No symptoms reported Hematologic/Lymphatic: No symptoms reported Neurological/Psychological: No symptoms reported Physical Exam - Vital signs Vitals: Temp Pulse Resp BP Pulse Ox 98.6 F 68 16 99/49 L 100 07/26/19 15:52 07/26/19 15:52 07/26/19 15:52 07/26/19 15:52 07/26/19 15:52 - Notes Notes: PHYSICAL EXAMINATION: Reviewed vital signs and charting by RN GENERAL: Alert, interacts well. No acute distress. HEAD: Normocephalic, atraumatic. EYES: Pupils equal and round. Extraocular movements intact. ENT: Oral mucosa moist, tongue midline. NECK: Full range of motion. Trachea midline. LUNGS: Clear to auscultation bilaterally, no wheezes, rales, or rhonchi. No respiratory distress. HEART: Regular rate and rhythm. No murmur ABDOMEN: soft, suprapubic tenderness to palpation. No distention. Bowel sounds present EXTREMITIES: Moves all 4 extremities spontaneously. No edema, No cyanosis. PSYCH: Normal affect, normal mood. SKIN: Warm, dry, normal turgor. No rashes or lesions noted. Course - Re-evaluation Re-evalutation: 07/26/19 18:17 Overall well-appearing in no acute distress, this is a chronic problem. Lab work all within normal limits, patient is not anemic, no leukocytosis, no urinary tract infection present. Patient states she felt significant relief from IM Toradol. Because this is a chronic issue I do not feel that a transvaginal ultrasound is necessary at this time and I feel that close follow- up with [facility] is more reasonable. I will give her a very short course of pain medication. She is stable for discharge. - Vital Signs Vital signs: Temp Pulse Resp BP Pulse Ox 98.6 F 68 16 99/49 L 100 07/26/19 15:52 07/26/19 15:52 07/26/19 15:52 07/26/19 15:52 07/26/19 15:52 - Laboratory Result Diagrams: 07/26/19 15:08 07/26/19 15:08 Laboratory results interpreted by me: 07/26/19 07/26/19 15:08 15:08 Glucose 66 L Urine Blood LARGE H Discharge - Discharge Clinical Impression: Menstrual cramps Abdominal pain Qualifiers: Abdominal location: lower abdomen, unspecified Qualified Code(s): R10.30 - Lower abdominal pain, unspecified Condition: Good Disposition: HOME, SELF-CARE Instructions: Abdominal Pain ([facility]) Additional Instructions: You have been seen in the Emergency Department (ED) for abdominal pain. Your e valuation most likely is related to menstruation. Please follow up with [facility] tomorrow regarding today's emergent visit and the symptoms that are bothering you. Return to the ED if your abdominal pain worsens or fails to improve, you develop bloody vomiting, bloody diarrhea, you are unable to tolerate fluids due to vomiting, fever greater than 101, or other symptoms that concern you. Referrals: [facility] [NO LOCAL MD] - Follow up as needed EVY CROWDER MD [ACTIVE STAFF] - Follow up tomorrow
[2019-07-26 18:29] VITALS: BP 130/80
== END 2019-07-26 18:29 | disposition home or self-care (01) ==
LOC: ER 14:19
DX: N94.6 Dysmenorrhea, unspecified (principal); R10.30 Lower abdominal pain, unspecified; J45.909 Unspecified asthma, uncomplicated
CPT/HCPCS: 36415; 82962; 84703; 85025; 80053; 81001; J1885

== ENCOUNTER 2019-11-16 23:34 | Emergency (ER) | payer SELFPAY ==
[2019-11-17] MEDS ORDERED: PREDNISONE 20 MG TABLET PO ONE (00:26)
[2019-11-17] MEDS ORDERED: FAMOTIDINE 20 MG TABLET PO ONE (00:26)
[2019-11-17] MEDS ORDERED: DIPHENHYDRAMINE HCL 25 MG CAPSULE PO ONE (00:26)
--- NOTE | 2019-11-17 00:31 | ER Document Report ---
ED General - General Chief Complaint: Rash Stated Complaint: POSSIBLE RASH Notes: Patient is a 34-year-old -[place] female with a past medical history of asthma who presents to the emergency department today with a chief complaint of rash that began 2 days ago. She states it began as a pruritic area at the back of the neck/nape line of the hair. She states the area began to spread down her back and is now global. Describes it as small red raised area that are pruritic in nature. Denies a history of any rash similar to this. She states the only new thing she can think of is about 4 days ago she bought a new wig that she has been wearing. She denies any difficulty breathing, trouble with secretions, tongue or throat swelling. No shortness of breath or chest pain. TRAVEL OUTSIDE OF THE [place] IN LAST 30 DAYS: No - Related Data Allergies/Adverse Reactions: No Known Allergies Allergy (Verified 10/30/18 13:59) Home Medications: albuterol inhaler prn Past Medical History - Social History Smoking Status: Current Every Day Smoker Family History: None Patient has suicidal ideation: No Patient has homicidal ideation: No Pulmonary Medical History: Reports: Hx Asthma Renal/ Medical History: Denies: Hx Peritoneal Dialysis - Immunizations Immunizations up to date: Yes Review of Systems - Review of Systems Skin: Rash -: Yes All other systems reviewed and negative Physical Exam - Vital signs Vitals: Pulse Resp BP Pulse Ox 82 20 111/56 L 100 11/16/19 23:44 11/16/19 23:44 11/16/19 23:44 11/16/19 23:44 - General General appearance: Appears well, Alert In distress: None - HEENT Mouth/Lips: Normal Mucous membranes: Normal Pharynx: Normal - Respiratory Respiratory status: No respiratory distress Chest status: Nontender Breath sounds: Normal Chest palpation: Normal - Cardiovascular Rhythm: Regular Heart sounds: Normal auscultation - Neurological Neuro grossly intact: Yes Cognition: Normal Orientation: AAOx4 [place] Coma Scale Eye Opening: Spontaneous [place] Coma Scale Verbal: Oriented [place] Coma Scale Motor: Obeys Commands Edith Coma Scale Total: 15 Speech: Normal - Psychological Associated symptoms: Normal affect, Normal mood - Skin Skin Temperature: Warm Skin Moisture: Dry Notes: Erythematous rash with excoriations, clearly originates at the nape of the posterior hairline/neck. Extends down the neck to the back and the extremities. Small red raised areas. No pattern. Course - Re-evaluation Re-evalutation: 11/17/19 00:29 Patient likely with a allergic reaction to this new with. She will discontinue wearing it. Given prednisone Benadryl and Pepcid here. She will be given a short course of prednisone for the next few days to continue. She denied any chance of . I counseled her at length regarding the importance of outpatient follow-up and advised she return here or any ER immediately with any new, persistent or worsening symptoms. She verbalized understood and agreed. - Vital Signs Vital signs: Temp Pulse Resp BP Pulse Ox 82 20 111/56 L 100 11/16/19 23:44 11/16/19 23:44 11/16/19 23:44 11/16/19 23:44 Discharge - Discharge Clinical Impression: Rash and nonspecific skin eruption Condition: Stable Disposition: HOME, SELF-CARE Instructions: Contact Dermatitis ([facility]) Additional Instructions: Follow-up with your regular doctor in 2 to 3 days for reevaluation. Return here or any ER immediately with any new, persistent or worsening symptoms. Prescriptions: Prednisone [Deltasone 20 mg Tablet] 2 tab PO DAILY #6 tablet
[2019-11-17 01:17] VITALS: BP 108/52
== END 2019-11-17 01:30 | disposition home or self-care (01) ==
LOC: ER 23:34
DX: R21 Rash and other nonspecific skin eruption (principal); F17.200 Nicotine dependence, unspecified, uncomplicated
CPT/HCPCS: 99282; J7512

== ENCOUNTER 2020-03-14 08:42 | Emergency (ER) | payer SELFPAY ==
[2020-03-14] MEDS ORDERED: KETOROLAC TROMETHAMINE 60 MG/2 ML SDV IM ONE (10:02)
--- NOTE | 2020-03-14 10:05 | ER Document Report ---
ED GI/ - General Chief Complaint: Abdominal Cramping Stated Complaint: CRAMPING Time Seen by Provider: 03/14/20 09:43 Primary Care Provider: BRIAN MA MD [Primary Care Provider] - Follow up as needed Mode of Arrival: Ambulatory Information source: Patient Notes: 34-year-old woman presents to the emergency department with a complaint of severe pain associated with her menstrual period. She has had a long history of dysmenorrhea and states that she began having severe cramping pelvic pain yesterday. In the past she is use tramadol or other pain medications for treatment of the symptoms. She denies heavy bleeding or nausea. TRAVEL OUTSIDE OF THE [place] IN LAST 30 DAYS: No - Related Data Allergies/Adverse Reactions: No Known Allergies Allergy (Verified 10/30/18 13:59) Home Medications: albuterol Past Medical History - Social History Smoking Status: Never Smoker Drug Abuse: Marijuana Family History: None Patient has homicidal ideation: No Pulmonary Medical History: Reports: Hx Asthma Renal/ Medical History: Denies: Hx Peritoneal Dialysis - Immunizations Immunizations up to date: Yes Review of Systems - Review of Systems Notes: Constitutional: Negative for fever. HENT: Negative for sore throat. Eyes: Negative for visual changes. Cardiovascular: Negative for chest pain. Respiratory: Negative for shortness of breath. Gastrointestinal: Negative for abdominal pain, vomiting or diarrhea. Genitourinary: See HPI Musculoskeletal: Negative for back pain. Skin: Negative for rash. Neurological: Negative for headaches, weakness or numbness. 10 point ROS negative except as marked above and in HPI. Physical Exam - Vital signs Vitals: Temp Pulse Resp BP Pulse Ox 98.7 F 81 16 108/64 98 03/14/20 08:46 03/14/20 08:46 03/14/20 08:46 03/14/20 08:46 03/14/20 08:46 - Notes Notes: PHYSICAL EXAMINATION: Physical Exam: General: Well-nourished well-developed 34-year-old woman laying in doubled over with associated pelvic pain. HEENT: NC/AT, pupils equal round and reactive to light, MM moist,nares clear, oropharynx clear, airway patent Neck: supple, no adenopathy, no masses. Good range of motion Lungs: clear, no wheezing, no rales no rhonchi CVS: Regular rate and rhythm no murmur gallop or rub Abdomen: Soft, active, tenderness in the pelvic region., no masses, no hepatosplenomegaly Ext: No edema, clubbing or cyanosis. Neuro: Alert and responsive, moving all 4 extremities on command, cranial nerves intact, no focal findings Skin: Intact no open lesions, no rash PSYCH: Normal mood, normal affect. Course - Re-evaluation Re-evalutation: 03/14/20 11:31 Patient was given Toradol 60 mg IM with significant improvement of her pain. She states that she has had flareups on a monthly basis with her menstrual cycles. She is presently on no preventive treatment. Ibuprofen has not controlled her symptoms in the past. - Vital Signs Vital signs: Temp Pulse Resp BP Pulse Ox 98.4 F 72 16 117/60 100 03/14/20 11:46 03/14/20 11:46 03/14/20 11:46 03/14/20 11:46 03/14/20 11:46 Discharge - Discharge Clinical Impression: Primary dysmenorrhea Condition: Good Disposition: HOME, SELF-CARE Instructions: Dysmenorrhea ([facility]) Additional Instructions: You were seen in the emergency department today with dysmenorrhea, and given medications to help with the pain. It is suggested that you follow-up with your TELEPHONE AD TAKER and treatment be given. Medications such as SSRIs or oral contraceptive medications may be used, you will need to have a TELEPHONE AD TAKER follow-up. HOME CARE INSTRUCTIONS & INFORMATION: Thank you for choosing us for your medical needs. We hope you're satisfied with the care you received. After you leave, you must properly care for your problem and, at the same time, observe its progress. Any condition can change. Some illnesses can change rapidly over hours or days. If your condition worsens, return to the Emergency Department or see your physician promptly. ABOUT YOUR X-RAYS AND EKG'S: If you had an EKG or X-rays taken, they have been read by the Emergency Physician. The X-rays and EKG's will also be read by a Radiologist or Senior Production Supervisor within 24 hours. If discrepancies are noted, you w ill be notified by telephone. Please be certain the ED has a correct telephone number & address where you can be reached. Also, realize that some fractures or abnormalities do not show up on initial X-rays. If your symptoms continue, see your physician. ABOUT YOUR LABORATORY TEST: If you had laboratory tests, the results have been reviewed by the Emergency Physician. Some test results (for example cultures) may not be available for several days. You will be contacted if any test result shows you need additional treatment. Please be certain the ED has a correct telephone number and address where you can be reached. ABOUT YOUR MEDICATIONS: You will receive instructions on how to take your medicine on the prescription label you receive. Additional information may be provided by the Pharmacy. If you have questions afterwards, call the ED for clarification or further instructions. Some prescribed medications may cause drowsiness. Do not perform tasks such as driving a car or operating machinery without consulting your Pharmacist. If you feel you need a refill of pain medication, your condition will need re-evaluation. Please do not call for a refill of any medication. ABOUT YOUR SIGNATURE: Signature of this document acknowledges to followin. Understanding that you received emergency treatment and that you may be released before al medical problems are known or treated. Please be certain the ED has a correct phone number & address where you can be reached. 2. Acknowledgement that you will arrange for follow-up care as recommended. 3. Authorization for the Emergency Physician to provide information to your follow-up Physician in order to maximize your care. AT ANY TIME, IF YOUR SYMPTOMS CHANGE SIGNIFICANTLY OR WORSEN OR YOU DEVELOP NEW SYMPTOMS, RETURN TO THE EMERGENCY DEPARTMENT IMMEDIATELY FOR RE-EVALUATION. OUR GOAL IS TO PROVIDE EXCELLENT MEDICAL CARE! WE HOPE THAT WE HAVE MET YOUR EXPECTATIONS DURING YOUR EMERGENCY DEPARTMENT VISIT AND THAT YOU FEEL YOU HAVE RECEIVED EXCELLENT CARE! Prescriptions: Ketorolac Tromethamine [Toradol 10 mg Tablet] 10 mg PO Q6HP PRN #12 tablet PRN Reason: For Pain Referrals: BRIAN MA MD [Primary Care Provider] - Follow up as needed
[2020-03-14] MEDS ORDERED: TRAMADOL HCL 50 MG TABLET PO ONE (11:29)
[2020-03-14 11:49] VITALS: BP 117/60
== END 2020-03-14 11:50 | disposition home or self-care (01) ==
LOC: ER 08:42
DX: N94.4 Primary dysmenorrhea (principal); F12.10 Cannabis abuse, uncomplicated; J45.909 Unspecified asthma, uncomplicated; Z79.899 Other long term (current) drug therapy
CPT/HCPCS: 99283; 96372; J1885

== ENCOUNTER 2020-05-12 10:53 | Emergency (ER) | payer SELFPAY ==
--- NOTE | 2020-05-12 12:23 | ER Document Report ---
ED Medical Screen (RME) - General Chief Complaint: Abdominal Cramping Stated Complaint: ABDOMINAL PAIN Time Seen by Provider: 05/12/20 12:20 Primary Care Provider: BRIAN MA MD [Primary Care Provider] - Follow up as needed Mode of Arrival: Wheelchair Information source: Patient Notes: 34-year-old female presents to ED for complaint of severe pelvic pain with vaginal bleeding. She states she has been to her PARAMEDIC INSTRUCTOR and they told her that she could not come in because it was not done for her Pap smear. She states they put her on ketorolac and it is not helping. She states they put her on Deprol and it made her hair fall out so they tried on control pills and it made her hair fall out and now she is just in severe pain. She is alert oriented respirations regular nonlabored speaking in full sentences. I have greeted and performed a rapid initial assessment of this patient. A comprehensive ED assessment and evaluation of the patient, analysis of test results and completion of medical decision making process will be conducted by an additional ED providers. TRAVEL OUTSIDE OF THE [place] IN LAST 30 DAYS: No - Related Data Allergies/Adverse Reactions: No Known Allergies Allergy (Verified 05/12/20 11:54) Home Medications: albuterol Past Medical History - Social History Chew tobacco use (# tins/day): No Frequency of alcohol use: None Drug Abuse: None Pulmonary Medical History: Reports: Hx Asthma Renal/ Medical History: Denies: Hx Peritoneal Dialysis - Immunizations Immunizations up to date: Yes Physical Exam - Vital signs Vitals: Temp Pulse Resp BP Pulse Ox 98.6 F 82 16 112/62 100 05/12/20 11:02 05/12/20 11:02 05/12/20 11:02 05/12/20 11:02 05/12/20 11:02 Course - Vital Signs Vital signs: Temp Pulse Resp BP Pulse Ox 98.6 F 82 16 112/62 100 05/12/20 11:55 05/12/20 11:02 05/12/20 11:02 05/12/20 11:02 05/12/20 11:02 Doctor's Discharge - Discharge Referrals: BRIAN MA MD [Primary Care Provider] - Follow up as needed
[2020-05-12 13:12] LABS: ABSOLUTE EOSINOPHILS # (AUTO) 0.1 10^3/uL (0.0-0.6); ABSOLUTE LYMPHOCYTES (AUTO) 1.2 10^3/uL (0.5-4.7); ABSOLUTE MONOCYTES (AUTO) 0.2 10^3/uL (0.1-1.4); BASOPHILS % (AUTO) 0.8 % (0-2); EOSINOPHILS % (AUTO) 2.9 % (0-6); HEMATOCRIT 45.9 % (36.0-47.0); HEMOGLOBIN 15.8 g/dL (12.0-15.5); MEAN CORPUSCULAR HEMOGLOBIN 33.4 pg (27.0-33.4); MEAN CORPUSCULAR HGB CONC 34.5 g/dL (32.0-36.0); MEAN CORPUSCULAR VOLUME 97 fl (80-97); MONOCYTES % (AUTO) 4.6 % (3-13); PLATELET COUNT 292 10^3/uL (150-450); RED BLOOD COUNT 4.74 10^6/uL (3.72-5.28); RED CELL DISTRIBUTION WIDTH 13.3 % (11.5-14.0); SEGMENTED NEUTROPHILS % (AUTO) 64.7 % (42-78); TOTAL CELLS COUNTED % (AUTO) 100 %; WHITE BLOOD COUNT 4.6 10^3/uL (4.0-10.5)
[2020-05-12 13:16] LABS: APPEARANCE,URINE SLIGHTLY-CLOUDY; BILIRUBIN,URINE NEGATIVE (NEGATIVE); COLOR,URINE YELLOW; GLUCOSE, URINE NEGATIVE (NEGATIVE); KETONES,URINE TRACE mg/dL (NEGATIVE); LEUKOCYTE ESTERASE,URINE NEGATIVE (NEGATIVE); NITRITE,URINE NEGATIVE (NEGATIVE); PROTEIN,URINE NEGATIVE (NEGATIVE); URINE SPECIFIC GRAVITY 1.023; UROBILINOGEN,URINE NEGATIVE mg/dL (<2.0)
[2020-05-12 13:27] LABS: ALBUMIN 4.7 g/dL (3.5-5.0); ALKALINE PHOSPHATASE 69 U/L (38-126); ANION GAP 5 (5-19); ASPARTATE AMINO TRANSFERASE 24 U/L (14-36); BILIRUBIN,TOTAL 0.6 mg/dL (0.2-1.3); BLOOD UREA NITROGEN 7 mg/dL (7-20); CALCIUM 9.5 mg/dL (8.4-10.2); CARBON DIOXIDE 28 mmol/L (22-30); CHLORIDE 104 mmol/L (98-107); GLUCOSE 83 mg/dL (75-110); POTASSIUM 4.4 mmol/L (3.6-5.0); TOTAL PROTEIN 8.2 g/dL (6.3-8.2)
[2020-05-12 13:36] LABS: URINE AMPHETAMINES SCREEN NEGATIVE; URINE BARBITURATES SCREEN NEGATIVE; URINE BENZODIAZEPINES SCREEN NEGATIVE; URINE COCAINE SCREEN NEGATIVE; URINE METHADONE SCREEN NEGATIVE; URINE PHENCYCLIDINE SCREEN NEGATIVE
[2020-05-12 13:38] LABS: URINE MARIJUANA (THC) SCREEN UNCONFIRMED POSITIVE
--- NOTE | 2020-05-12 14:20 | RADIOLOGY REPORT (SQ) ---
EXAM DESCRIPTION: U/S NON-OB PELVIS W/O DOP IMAGES COMPLETED DATE/TIME: 05/12/2020 2:08 pm REASON FOR STUDY: Severe pelvic pain with vaginal bleeding COMPARISON: 05/04/2018 TECHNIQUE: Dynamic and static grayscale images acquired of the pelvis via transabdominal approach an d recorded on PACS. Additional selected color Doppler and spectral images recorded. LIMITATIONS: None. FINDINGS: UTERUS: The patient is currently demonstrating. A 1.4 x 1.4 x 1.4 cm hypo echoic mass in the posterior body of the uterus may represent a uterine fibroid. Contour normal. No mass. ENDOMETRIAL STRIPE: No focal or generalized thickening. N CERVIX: The cervix measures 2.3 cm in length. No nabothian cysts. RIGHT OVARY AND DOPPLER: Normal size. Multiple ovarian follicles. Normal arterial vascular flow wit hout evidence for torsion. LEFT OVARY AND DOPPLER: Normal size. Multiple ovarian follicles. Normal arterial vascular flow witho ut evidence for torsion. FREE FLUID: None noted. OTHER: No other significant finding. MEASUREMENTS: UTERUS: 8.0 x 4.7 x 4.0 cm ENDOMETRIAL STRIPE: 8.0 mm RIGHT OVARY: 2.6 x 2.4 x 1.9 cm LEFT OVARY: 2.5 x 1.9 x 2.1 cm IMPRESSION: 1. The patient is currently menstruating. Small uterine fibroid suggested. 2. Bilateral ovarian follicles. TECHNICAL DOCUMENTATION: JOB ID: [id number] 2010 [employer]- All Rights Reserved Rev-02/17 Reading location - IP/workstation name: [email or web address]
[2020-05-12] MEDS ORDERED: KETOROLAC TROMETHAMINE INJ/PF 30 MG/1 ML SDV IM ONE (18:54)
[2020-05-12] MEDS ORDERED: KETOROLAC TROMETHAMINE 60 MG/2 ML SDV IM ONE ×2 (18:56→19:32)
--- NOTE | 2020-05-12 19:14 | ER Document Report ---
ED General - General Chief Complaint: Abdominal Cramping Stated Complaint: ABDOMINAL PAIN Time Seen by Provider: 05/12/20 12:20 Primary Care Provider: BRIAN MA MD [HONORARY] - Follow up as needed Mode of Arrival: Wheelchair Notes: 34-year-old female with past medical history of asthma and dysmenorrhea presenting today with 4 days of abdominal cramping. States that she was seen here last time and given IM Toradol which helped to take the edge off her pain. When her period started on Tuesday she was taking oral toradol which again took the edge off of her symptoms. She took her last pill this morning and went to work. She states while at work she was unable to stay standing as the only comfortable position was for her to roll up in the position. She states that her periods are irregular. She states that when she has them she passes heavy clots but only when she is on the toilet. She uses a pad but states that there is no blood on the pad. She has an appointment with ELECTRICIAN APPRENTICE [facility]OWER[facility]SE in mid September, but nothing sooner than that. She denies any fevers, chills, nausea or vomiting. TRAVEL OUTSIDE OF THE [place] IN LAST 30 DAYS: No - Related Data Allergies/Adverse Reactions: No Known Allergies Allergy (Verified 05/12/20 11:54) Home Medications: albuterol Past Medical History - General Information source: Patient - Social History Smoking Status: Never Smoker Chew tobacco use (# tins/day): No Frequency of alcohol use: None Drug Abuse: None Family History: None Patient has homicidal ideation: No Pulmonary Medical History: Reports: Hx Asthma Renal/ Medical History: Denies: Hx Peritoneal Dialysis - Immunizations Immunizations up to date: Yes Review of Systems - Review of Systems Constitutional: No symptoms reported EENT: No symptoms reported Cardiovascular: No symptoms reported Respiratory: No symptoms reported Gastrointestinal: See HPI Female Genitourinary: See HPI Musculoskeletal: No symptoms reported Skin: No symptoms reported Hematologic/Lymphatic: No symptoms reported Neurological/Psychological: No symptoms reported Physical Exam - Vital signs Vitals: Temp Pulse Resp BP Pulse Ox 98.6 F 82 16 112/62 100 05/12/20 11:02 05/12/20 11:02 05/12/20 11:02 05/12/20 11:02 05/12/20 11:02 - Notes Notes: Chaperoned by PCT staff Adult General: GENERAL: Alert, interacts well. No acute distress HEAD: Normocephalic, atraumatic EYES: Pupils equal, round and reactive to light. Extraocular movements intact. ENT: Oral mucosa moist, tongue midline. Oropharynx unremarkable. Airway patent. Nares patent, sinuses nontender, ear canals unremarkable, TMs intact. No Trismus. NECK: Full range of motion. Supple. Trachea midline. No lymphadenopathy. LUNGS: Wheezes upper bilateral lung foy. No rales, or rhonchi. No respi ratory distress. Nontender chest wall. HEART: Regular rate and rhythm. No murmurs, rubs or gallops. ABDOMEN: Soft, nontender. Nondistended. Bowel sounds present in all 4 quadrants. No rebound, guarding or masses. GENITOURINARY: Vaginal bleeding, no large clots. (-) chandelier sign EXTREMITIES: Moves all 4 extremities spontaneously. BACK: No cervical, thoracic, lumbar midline tenderness. Moves all extremities with full range of motion. NEUROLOGICAL: Alert and oriented x3. Normal speech. Strength 5/ 5 in all extremities. PSYCH: Normal affect, normal mood. SKIN: Warm, dry, normal turgor. No rashes or lesions noted. Course - Re-evaluation Re-evalutation: 05/12/20 19:14 Patient curled up in position when entered the room. Her labs show no elevated white count, her is negative and her additional labs are unremarkable. Her pelvic ultrasound shows that she is menstruating and that she has a uterine fibroid and multiple bilateral ovarian follicles. I have ordered her pain medication at this time. Patient was reevaluated, reports that her pain has decreased. She is able to sit up without having severe pain. I informed her that the results of her g/c are pending. She will be notified if she needs treatment but also encourage the patient to call for results as well. She states she typically tests positive for bacterial vaginosis, I informed her of her results, she does not desire treatment at this time as she is asymptomatic at this time. Patient reports that when she was prescribed toradol it does help alleviate her cramping. She has tried midol and ibuprofen in the past with no real relief. I discussed with her that her ultrasound results and recommend she follows up with an hoist operator pr ovider. Patient acknowledges and verbalizes understanding of instructions and plan. all questions answered. 05/13/20 01:27 G/C are not detected. - Vital Signs Vital signs: Temp Pulse Resp BP Pulse Ox 98.0 F 59 L 16 105/60 100 05/12/20 21:48 05/12/20 21:48 05/12/20 21:48 05/12/20 21:48 05/12/20 21:48 - Laboratory Result Diagrams: 05/12/20 12:47 05/12/20 12:47 Laboratory results interpreted by me: 05/12/20 05/12/20 05/12/20 12:47 12:47 12:47 Hgb 15.8 H Sodium 136.9 L Urine Ketones TRACE H Urine Blood SMALL H Urine Ascorbic Acid 40 H Discharge - Discharge Clinical Impression: Dysmenorrhea Condition: Stable Disposition: HOME, SELF-CARE Instructions: Anti-Inflammatory Medication ([facility]), Dysmenorrhea ([facility]) Additional Instructions: Your ultrasound shows a uterine fibroid and multiple ovarian follicles. Please follow up with a lithographic artist provider for your painful periods. I have prescribed you toradol as this has helped you previous. Please take medication as prescribed. You may return to the emergency department for worsening symptoms or the development of new symptoms. Prescriptions: Ketorolac Tromethamine [Toradol 10 mg Tablet] 10 mg PO Q6HP PRN 5 Days #20 tablet PRN Reason: Forms: Return to Work Referrals: BRIAN MA MD [HONORARY] - Follow up as needed
[2020-05-12 20:48] LABS: BACTERIA (WET MOUNT) 3+ BACTERIA SEEN; T.VAGINALIS (WET MOUNT) NO TRICHOMONAS SEEN; WBCS (WET MOUNT) 1+ WBCS SEEN; YEAST (WET MOUNT) NO YEAST SEEN
[2020-05-12 21:50] VITALS: BP 105/60
[2020-05-12 22:15] LABS: CHLAM PCR NOT DETECTED (NOT DETECT)
== END 2020-05-12 21:49 | disposition home or self-care (01) ==
LOC: ER 10:53
DX: N94.6 Dysmenorrhea, unspecified (principal); R10.9 Unspecified abdominal pain; J45.909 Unspecified asthma, uncomplicated
CPT/HCPCS: 99285; 96372; 36415; 87210; 83690; 84703; 85025; 80053; 81001; 80307; 87491; 87591; 76856; J1885

== ENCOUNTER 2020-08-10 16:52 | Emergency (ER) | payer MEDICAID, OTHER ==
[2020-08-10 17:04] VITALS: BP 123/56
[2020-08-10] MEDS ORDERED: DIPH/PERTUSS(ACELL)/TETANUS VAC/PF 0.5 ML SYR (>=10YO) IM ONE (17:26)
--- NOTE | 2020-08-10 17:27 | ER Document Report ---
HPI - HPI Time Seen by Provider: 08/10/20 17:24 Notes: 34-year-old female patient presents emergency department laceration to her left index finger. Patient reports she was cutting cabbage when this occurred. It occurred just prior to arrival. She is not sure when last tetanus was. - ROS Systems Reviewed and Negative: Yes All other systems reviewed and negative - REPRODUCTIVE Reproductive: DENIES: : - DERM Skin Problems: Laceration Past Medical History - General Information source: Patient - Social History Smoking Status: Never Smoker Family History: None Pulmonary Medical History: Reports: Hx Asthma Renal/ Medical History: Denies: Hx Peritoneal Dialysis - Immunizations Immunizations up to date: Yes Vertical Provider Document - CONSTITUTIONAL Notes: GENERAL: Well-appearing, well-nourished and in no acute distress. HEAD: Atraumatic, normocephalic. EYES: Pupils equal round extraocular movements intact, conjunctiva are normal. ENT: Nares patent NECK: Normal range of motion LUNGS: No respiratory distress Musculoskeletal: Normal range of motion NEUROLOGICAL: Normal speech, normal gait. PSYCH: Normal mood, normal affect. SKIN: 1 cm laceration noted to the tip of the left index finger. - INFECTION CONTROL TRAVEL OUTSIDE OF THE [place] IN LAST 30 DAYS: No Course - Re-evaluation Re-evalutation: Laceration repaired with Dermabond , patient tolerated well, dressing applied. See procedure note. - Vital Signs Vital signs: Temp Pulse Resp BP Pulse Ox 98.4 F 88 20 123/56 L 100 08/10/20 17:03 08/10/20 17:03 08/10/20 17:03 08/10/20 17:03 08/10/20 17:03 Procedures - Laceration/Wound Repair Left index finger Wound length (cm): 1 Wound's Depth, Shape: Superficial Wound Repaired With: Dermabond Discharge - Discharge Clinical Impression: Laceration of index finger Qualifiers: Encounter type: initial encounter Damage to nail status: without damage Foreign body presence: without foreign body Laterality: left Qualified Code(s): S61.211A - Laceration without foreign body of left index finger without damage to nail, initial encounter Condition: Stable Disposition: HOME, SELF-CARE Additional Instructions: Dermabond (Skin Adhesive Closure) Skin adhesive (such as Dermabond) is a quick-drying glue that remains slightly flexible while it holds wound edges together. It can substitute for stitches on some cuts. The film will usually fall off the skin after 5 to 10 days. Keep the wound area clean and dry. Do not soak or scrub the wound. Don't swim. You can shower briefly after 24 hours. Gently blot the area dry with a soft towel. Don't apply ointments. If there is a dressing, change it immediately if it gets wet. Do not place tape directly over the adhesive film, because the tape may pull the film off your skin as you remove it. Don't bump the wound area. If there's risk of injury, keep the area well- padded. Avoid stretching of the skin. Do not scratch or pick at the adhesive film. Avoid prolonged exposure to sunlight or tanning lamps. Return if there is increasing pain, swelling, redness, or drainage, or if the wound edges seem to open or separate.
== END 2020-08-10 17:41 | disposition home or self-care (01) ==
LOC: ER 16:52
DX: S61.211A Laceration without foreign body of left index finger without damage to nail, initial encounter (principal); W45.8XXA Other foreign body or object entering through skin, initial encounter; Y93.G9 Activity, other involving cooking and grilling; Y92.009 Unspecified place in unspecified non-institutional (private) residence as the place of occurrence of the external cause; Z23 Encounter for immunization
CPT/HCPCS: 90471; 90715; 99283

== ENCOUNTER 2020-10-29 21:15 | Emergency (ER) | payer OTHER ==
[2020-10-29] MEDS ORDERED: KETOROLAC TROMETHAMINE 60 MG/2 ML SDV IM ONE (21:30)
--- NOTE | 2020-10-29 21:33 | ER Document Report ---
ED Medical Screen (RME) - General Chief Complaint: Abdominal Pain Stated Complaint: CRAMPING,ABDOMINAL PAIN Time Seen by Provider: 10/29/20 21:28 TRAVEL OUTSIDE OF THE [place] IN LAST 30 DAYS: No - HPI Notes: 10/29/20 21:31 34-year-old female presents to ED for evaluation of abdominal pain with her menstrual cycle starting earlier today. Reports she started her menstrual cycle yesterday and is passing her normal amount of clots and bleeding. States that she ran out of the Toradol medication she normally takes. Has not been able to contact her HEATSET WINDER OPERATOR for further medication management. Reports that she has been seen and evaluated here in the past and received this medication prior. States that she is not having any fevers dysuria or hematuria. Denies other complaints. - Related Data Allergies/Adverse Reactions: No Known Allergies Allergy (Verified 05/12/20 11:54) Past Medical History Pulmonary Medical History: Reports: Hx Asthma Renal/ Medical History: Denies: Hx Peritoneal Dialysis - Immunizations Immunizations up to date: Yes Physical Exam - Vital signs Vitals: Temp Pulse Resp BP Pulse Ox 98.2 F 83 16 125/72 100 10/29/20 21:20 10/29/20 21:20 10/29/20 21:20 10/29/20 21:20 10/29/20 21:20 General Appearance: No acute distress. A&Ox3 sitting comfortably on a stretcher. Skin: No pallor, jaundice, erythema, or ecchymosis. HEENT: Normocephalic atraumatic pupils are equal round reactive to light and accommodation extraocular movements are intact. TMs without bulging or erythema bilaterally. Nares without any discharge. Mouth teeth in good condition. Uvula is midline airway is patent. Neck is supple without lymphadenopathy. Chest: Clear to auscultation bilaterally. No wheezing rales or rhonchi. Equal inspiratory effort. Heart: S1-S2. Regular rate and rhythm no murmurs rubs or gallops. Abdomen: Soft, no focal tenderness with deep palpation, No rebound or guarding, no hepatosplenomegaly, no masses. Back: No midline spinal tenderness. No CVA tenderness bilaterally. Musculoskeletal: Moving all extremities without discomfort. No edema or atrophy. No deformities. Neuro: GCS 15 No focal neurological deficits. Psych: Mood and affect appropriate. Course - Vital Signs Vital signs: Temp Pulse Resp BP Pulse Ox 98.2 F 83 16 125/72 100 10/29/20 21:20 10/29/20 21:20 10/29/20 21:20 10/29/20 21:20 10/29/20 21:20
[2020-10-30 00:34] LABS: APPEARANCE,URINE CLEAR; BILIRUBIN,URINE NEGATIVE (NEGATIVE); COLOR,URINE YELLOW; GLUCOSE, URINE NEGATIVE (NEGATIVE); KETONES,URINE NEGATIVE (NEGATIVE); LEUKOCYTE ESTERASE,URINE TRACE (NEGATIVE); NITRITE,URINE NEGATIVE (NEGATIVE); PROTEIN,URINE NEGATIVE (NEGATIVE); URINE SPECIFIC GRAVITY 1.027; UROBILINOGEN,URINE NEGATIVE mg/dL (<2.0)
--- NOTE | 2020-10-30 01:56 | ER Document Report ---
ED GI/ - General Chief Complaint: Abdominal Pain Stated Complaint: CRAMPING,ABDOMINAL PAIN Time Seen by Provider: 10/29/20 21:28 Mode of Arrival: Ambulatory Information source: Patient Notes: 10/29/20 21:54 - ED Nursing Note by AZUCENA AZUL Num: [id number] : 1985 Patient Age: [age] Y/O FEMALE, PRESENTS WITH ABD CRAMPING. PT REPORTS THAT SHE STARTED HER PERIOD YESTERDAY, BLEEDING NORMAL. HAS RUN OUT OF TORADOL, WHICH SHE NORMALLY TAKES WHEN ON PERIOD, ED Medical Screen (Luis notes) - General Chief Complaint: Abdominal Pain Stated Complaint: CRAMPING,ABDOMINAL PAIN Time Seen by Provider: 10/29/20 21:28 TRAVEL OUTSIDE OF THE [place] IN LAST 30 DAYS: No - HPI Notes: 10/29/20 21:31 34-year-old female presents to ED for evaluation of abdominal pain with her m enstrual cycle starting earlier today. Reports she started her menstrual cycle yesterday and is passing her normal amount of clots and bleeding. States that she ran out of the Toradol medication she normally takes. Has not been able to contact her DRIVE THRU ORDER TAKER for further medication management. Reports that she has been seen and evaluated here in the past and received this medication prior. States that she is not having any fevers dysuria or hematuria. Denies other complaints. MY NOTES 35-year-old black female arrives with 24 hours of abdominal cramps. She reports she used to take tramadol for 1 year but this was changed around 1 year ago to Toradol as needed for menstrual cramps. This was prescribed by her UROLOGIC SURGEON across the street. She denies any fever chills dysuria vaginal discharge or trauma or abuse. She works at [employer] and may need a work note - Related Data TRAVEL OUTSIDE OF THE [place] IN LAST 30 DAYS: No - Related Data Allergies/Adverse Reactions: No Known Allergies Allergy (Verified 05/12/20 11:54) Past Medical History - General Information source: Patient - Social History Smoking Status: Former Smoker Cigarette use (# per day): No Chew tobacco use (# tins/day): No Smoking Education Provided: No Frequency of alcohol use: None Drug Abuse: None Lives with: Family Family History: None, Reviewed & Not Pertinent Patient has suicidal ideation: No Patient has homicidal ideation: No Pulmonary Medical History: Reports: Hx Asthma Renal/ Medical History: Denies: Hx Peritoneal Dialysis - Immunizations Immunizations up to date: Yes Review of Systems - Review of Systems Constitutional: No symptoms reported EENT: No symptoms reported Cardiovascular: No symptoms reported Respiratory: No symptoms reported Gastrointestinal: No symptoms reported Genitourinary: See HPI Female Genitourinary: See HPI, Other - Painful periods Musculoskeletal: No symptoms reported Skin: No symptoms reported Hematologic/Lymphatic: No symptoms reported Neurological/Psychological: No symptoms reported Physical Exam - Vital signs Vitals: Temp Pulse Resp BP Pulse Ox 98.2 F 83 16 125/72 100 10/29/20 21:20 10/29/20 21:20 10/29/20 21:20 10/29/20 21:20 10/29/20 21:20 Interpretation: Normal - General General appearance: Appears well, Alert - HEENT Head: Normocephalic, Atraumatic Eyes: Normal Pupils: PERRL - Respiratory Respiratory status: No respiratory distress Chest status: Nontender Breath sounds: Normal Chest palpation: Normal - Cardiovascular Rhythm: Regular Heart sounds: Normal auscultation Murmur: No - Abdominal Inspection: Normal Distension: No distension Bowel sounds: Normal Tenderness: Tender - Suprapubic on palpation Organomegaly: No organomegaly - Rectal Hemorrhoids: Other - Deferred - Genitourinary Bimanuel exam: Other - Deferred - Back Back: Normal, Nontender - Extremities General upper extremity: Normal inspection, Nontender, Normal color, Normal ROM, Normal temperature General lower extremity: Normal inspection, Nontender, Normal color, Normal ROM, Normal temperature, Normal weight bearing. No: Tigist's sign - Neurological Neuro grossly intact: Yes Cognition: Normal Orientation: AAOx4 Edith Coma Scale Eye Opening: Spontaneous Edith Coma Scale Verbal: Oriented Andrews Coma Scale Motor: Obeys Commands Andrews Coma Scale Total: 15 Speech: Normal Motor strength normal: LUE, RUE, LLE, RLE Sensory: Normal - Psychological Associated symptoms: Normal affect, Normal mood - Skin Skin Temperature: Warm Skin Moisture: Dry Skin Color: Normal Course - Vital Signs Vital signs: Temp Pulse Resp BP Pulse Ox 98.1 F 115 H 16 107/60 99 10/30/20 00:10/30/20 00:10/30/20 00:10/30/20 00:19 10/30/20 00:19 - Laboratory Results Laboratory Results Interpreted: 10/30/20 00:18 Urine Blood SMALL H Ur Leukocyte Esterase TRACE H Critical Laboratory Results Reviewed: No Critical Results Attending or Supervising Physician who Reviewed Labs: UMER NIX JR - Radiology Results Critical Radiology Results Reviewed: No Critical Results Attending or Supervising Physician who Reviewed Radiology: UMER NIX JR Discharge - Discharge Clinical Impression: Dysmenorrhea Condition: Stable Disposition: HOME, SELF-CARE Additional Instructions: Follow-up with personal doctor or with UROLOGIC SURGEON doctor as needed. Off work as directed. Return to ER as needed. Take medicines as directed. Encourage fluids. Prescriptions: Ketorolac Tromethamine [Toradol 10 mg Tablet] 10 mg PO Q8HP PRN #20 tablet PRN Reason: Forms: Return to Work
[2020-10-30 02:23] VITALS: BP 104/63
== END 2020-10-30 02:22 | disposition home or self-care (01) ==
LOC: ER 21:15
DX: N94.6 Dysmenorrhea, unspecified (principal)
CPT/HCPCS: 99284; 96372; 81025; 81001; J1885